=== PATIENT | male | born 2000 | race Hispanic/Latino ===

== ENCOUNTER 2024-05-04 21:46 | Emergency (ER) | payer SELFPAY ==
[~2024-05-04] VITALS: Ht 175.3 cm; Wt 72.6 kg
[2024-05-04 21:46] VITALS: PULSE 97; RESP 22; TEMP 97.6
[~2024-05-04 21:46] MED LIST: QVAR REDIHALE10.6 G1 INH; SINGULAIR10 MG PO; VENTOLIN HFA18 GM INH
[2024-05-04] MEDS ORDERED: ALBUTEROL/IPRATROPIUM 3 ML NEB ONE (21:53)
[2024-05-04] MEDS: ALBUTEROL/IPRATROPIUM 3 ML NEB NEB ONE ×3 (22:02→22:50)
[2024-05-04] MEDS ORDERED: PREDNISONE 20 MG TAB ONE (22:14)
[2024-05-04] MEDS: PREDNISONE 20 MG TAB PO SCH (22:20)
[2024-05-04] MEDS ORDERED: PREDNISONE20 MG PO (22:59)
[2024-05-04] MEDS ORDERED: VENTOLIN HFA18 GM INH (23:01)
[2024-05-04 23:45] VITALS: BP 141/65; PULSE 96; RESP 18; TEMP 97.8; O2SAT 97
== END 2024-05-04 23:45 | disposition home or self-care (01) ==
LOC: FSED 21:54
DX: R06.02 Shortness of breath (principal); J45.901 Unspecified asthma with (acute) exacerbation
CPT/HCPCS: 99282; J7512